=== PATIENT | female | born 1970 | race American Indian/Alaskan Native ===

== ENCOUNTER 2017-03-12 14:47 | Outpatient (CLI) | payer OTHER ==
--- NOTE | 2017-03-12 16:21 | Mammography Report ---
BILATERAL DIGITAL SCREENING MAMMOGRAM with CAD: 03/12/17 14:47:00 CLINICAL: Routine screening. COMPARISON:03/12/16 FINDINGS: There are scattered areas of fibroglandular density.Right lower outer biopsy clip. No mass, architectural distortion or suspicious calcifications. IMPRESSION: No mammographic evidence of malignancy. BI-RADS CATEGORY: 2 -- Benign RECOMMENDATION: Routine mammographic screening in one year. COMMENT: Patient follow-up letters are generated by our [employer] application.
== END 2017-03-12 14:48 | disposition home or self-care (01) ==
LOC: SPVWC 14:47
PROVIDERS: ATTEND Internal Medicine
DX: Z12.31 Encounter for screening mammogram for malignant neoplasm of breast (principal)
CPT/HCPCS: 77067; G0202

== ENCOUNTER 2019-09-04 14:58 | Outpatient (CLI) | payer BC ==
--- NOTE | 2019-09-08 16:31 | Mammography Report ---
DIGITAL SCREENING MAMMOGRAM WITH CAD, 09/04/2019 INDICATION: Routine screening mammography. TECHNIQUE: Digital bilateral 2D mammography was obtained in the craniocaudal and mediolateral obliq ue projections. This examination was interpreted with the benefit of Computer-Aided Detection analysi s. COMPARISON: 03/12/2017 FINDINGS: Breast Density: The breasts are almost entirely fatty. There is no evidence of dominant mass, suspicious calcifications or architectural distortion in eithe r breast. A right lower biopsy clip. A few bilateral benign calcifications. IMPRESSION: No mammographic evidence of malignancy. Follow up recommendation: Routine yearly BI-RADS Category 2: Benign. A "normal" or negative report should not discourage follow up or biopsy of a clinically significant f inding. A written summary of these findings will be mailed to the patient. The patient will be entered into a mammography reporting system which will generate a reminder letter for the patient's next appointmen t at the appropriate interval. The [employer] recommends yearly mammograms starting at age 40 and continuing as l artie as a woman is in good health. Breast MRI is recommended for women with an approximate 20-25% or greater lifetime risk of breast cancer, including women with a strong family history of breast or ova leonidas cancer or who have been treated for Hodgkin's disease. Signer Name: Avelino Hernandez MD Signed: 09/08/2019 4:27 PM Workstation Name: [id number]
== END 2019-09-04 14:59 | disposition home or self-care (01) ==
LOC: SPVWC 14:58
PROVIDERS: ATTEND Internal Medicine
DX: Z12.31 Encounter for screening mammogram for malignant neoplasm of breast (principal)
CPT/HCPCS: 77067

== ENCOUNTER 2020-09-06 11:23 | Outpatient (CLI) | payer BC ==
--- NOTE | 2020-09-07 08:26 | Mammography Report ---
DIGITAL SCREENING MAMMOGRAM WITH CAD, 09/06/2020 INDICATION: Routine screening mammography. TECHNIQUE: Digital bilateral 2D mammography was obtained in the craniocaudal and mediolateral obliq ue projections. This examination was interpreted with the benefit of Computer-Aided Detection analysi s. COMPARISON: 09/04/2019, 03/12/2017, 03/12/2016, 03/11/2015 FINDINGS: Breast Density: The breasts are almost entirely fatty. There is no evidence of dominant mass, suspicious calcifications or architectural distortion in eithe r breast. Architectural changes from bilateral breast reduction are again noted. There is a biopsy ma rker in the right breast. IMPRESSION: Follow up recommendation: Routine yearly BI-RADS Category 2: Benign. A "normal" or negative report should not discourage follow up or biopsy of a clinically significant f inding. A written summary of these findings will be mailed to the patient. The patient will be entered into a mammography reporting system which will generate a reminder letter for the patient's next appointmen t at the appropriate interval. The [employer] recommends yearly mammograms starting at age 40 and continuing as l artie as a woman is in good health. Breast MRI is recommended for women with an approximate 20-25% or greater lifetime risk of breast cancer, including women with a strong family history of breast or ova leonidas cancer or who have been treated for Hodgkin's disease. Signer Name: Jewell Monahan MD Signed: 09/07/2020 8:21 AM Workstation Name: [id number]
== END 2020-09-06 11:24 | disposition home or self-care (01) ==
LOC: SPVWC 11:23
PROVIDERS: ATTEND Internal Medicine
DX: Z12.31 Encounter for screening mammogram for malignant neoplasm of breast (principal)
CPT/HCPCS: 77067

== ENCOUNTER 2021-09-11 08:20 | Outpatient (CLI) | payer BC ==
--- NOTE | 2021-09-11 11:32 | Mammography Report ---
DIGITAL SCREENING MAMMOGRAM WITH CAD, 09/11/2021 CLINICAL INFORMATION / INDICATION: Routine screening mammography. TECHNIQUE: Digital bilateral 2D mammography was obtained in the craniocaudal and mediolateral obliqu e projections. This examination was interpreted with the benefit of Computer-Aided Detection analysis . COMPARISON: Prior mammograms 09/06/2020 and 09/04/2019 FINDINGS: Breast Density: The breasts are almost entirely fatty. No dominant mass, suspicious calcifications, or architectural distortion in either breast. There is stable benign post reduction change seen in both breasts and a stable biopsy clip in the rig ht breast. There has been no significant change compared with the prior examinations. IMPRESSION: No mammographic evidence of malignancy. Follow up recommendation: Routine yearly BI-RADS Category 2: Benign. A "normal" or negative report should not discourage follow up or biopsy of a clinically significant f inding. A written summary of these findings will be mailed to the patient. The patient will be entered into a mammography reporting system which will generate a reminder letter for the patient's next appointmen t at the appropriate interval. The [employer] recommends yearly mammograms starting at age 40 and continuing as l artie as a woman is in good health. Breast MRI is recommended for women with an approximate 20-25% or greater lifetime risk of breast cancer, including women with a strong family history of breast or ova leonidas cancer or who have been treated for Hodgkin's disease. Signer Name: Iris Pryor MD Signed: 09/11/2021 11:28 AM Workstation Name: [email or web address]
== END 2021-09-11 08:21 | disposition home or self-care (01) ==
LOC: SPVWC 08:20
PROVIDERS: ATTEND Internal Medicine
DX: Z12.31 Encounter for screening mammogram for malignant neoplasm of breast (principal); N64.89 Other specified disorders of breast
CPT/HCPCS: 77067